=== PATIENT | male | born 1955 | race Caucasian/White ===

== ENCOUNTER 2016-11-01 06:37 | Emergency (ER) | payer OTHER ==
--- NOTE | 2016-11-01 07:21 | ED CLINICAL REPORT ---
Clinical Report - Physicians/[facility] [address] [place] [address] 11/01/2016 6:38 Patient: MELISSA MOORE Arrived- By private vehicle. Historian- patient. HISTORY OF PRESENT ILLNESS Chief Complaint: SKIN RASH. This started past 6 months and is still present and worsening. It was abrupt in onset and has been constant but is not gone now. It is described as painful and burning. It has been located on the face and neck. No recent medication, insect bite or food exposure. Was not recently exposed to poison mirta or poison oak. (patient reports picking at the wound. States that he looksat the scabs to come off with a "jewelers Loop. "States that he sees white material on the scabs. Reports he is follow-up with his creative writer however has not gotten better. Patient was initially he has had lidocaine cream, and about appointment, and pain medication which does not help with the lesions. The patient states that he has not been any recent drug use in the past month. Patient reports that he occasionally does marijuana. Patient reports no recent methamphetamine use.). Similar symptoms previously: Many times. Recent medical care: The patient was seen recently in a clinic. REVIEW OF SYSTEMS No fever, chills, headache, eye irritation or chest pain. All systems otherwise negative, except as recorded above. PAST HISTORY See nurses notes. Tetanus immunization status is up-to-date. SOCIAL HISTORY Smoker- current status unknown. History of occasional drug use: marijuana. No alcohol use. No recent travel. Is a local resident. ADDITIONAL NOTES The nursing notes have been reviewed. PHYSICAL EXAM Vital Signs: 11/01/2016 06:51 BP: 138/96. HR: 101. RR: 16. O2 saturation: 95%. Temp: 97.6 F. Hypertensive. Oxygen saturation normal. Appearance: Alert. Oriented X3. No acute distress. Neck: Neck supple. CVS: Normal heart rate and rhythm. Heart sounds normal. Respiratory: No respiratory distress. Breath sounds normal. Chest nontender. Abdomen: Nontender. No organomegaly. Skin: (area of excoriation to the left lower face as well as posterior neck. No active bleeding. No erythema. No abscess. Edges of the wound are well demarcated. They are not raised. No satellite lesions. No vesicles. Signs of chronic granulation tissue noted at the wound base.). PROGRESS AND PROCEDURES Course of Care: The patient is a pleasant and cooperative 61-year-old male presenting for evaluation of lesions to the left face in the posterior neck. Had long discussion with patient in regards to management of these wounds. Stressed the importance of not picking at the wounds. The patient states that she is seen by his creative writer and has not had significant improvement with any of the wounds. The patient that no matter what medical treatments are given, if he continues to pick at the wounds, there will be no healing. Patient describes fomites and tactile hallucinations. Had long discussion with the patient in regards to capabilities of wound management here in the emergency department. Do not feel that there is any signs of infection at this time. There is no erythema or purulent drainage from the wounds. Did not feel that the abnormalities fungal. Had discussion with patient in regards to the wounds and possibility of skin cancer however do not feel that this is likely. Likely wounds are from chronic excoriation. Patient was not happy with this explanation. Patient states that he does not want to be labeled as a substance abuse user. I discussed with patient in regards to this. Had explained to patient that these lesions are commonly seen with people who do methamphetamine however do not see that he does methamphetamine. I tried to offer her other medications for the discomfort and dictating healing however patient states that none of those have worked in the past. Only other option that I had at this point in time would be referral to a different creative writer. Patient is agreeable to this. Discussed with patient workup, diagnosis, home care, follow-up, and return precautions. All questions answered. Patient expressed understanding of these instructions and was agreeable to them. Disposition: Discharged. Condition: good. CLINICAL IMPRESSION Wound check (acute exacerbation on face and neck). INSTRUCTIONS Warnings: GENERAL WARNINGS: Return or contact your physician immediately if your condition worsens or changes unexpectedly, if not improving as expected, or if other problems arise. Specifically return if pain, vomiting, bleeding, breathing difficulty or fever. Your Current Medications: CONTINUE TAKING THE FOLLOWING MEDICATIONS: None*. OTC Medications: Acetaminophen (available over the counter): take according to label instructions. Follow-up: Return to the emergency department as needed. Follow up with your doctor in three days. Follow up with doctor Dermatology. Reason for referral: recheck today's concerns. Contact . Summary of care provided to patient via paper. Screening today revealed the patient's blood pressure to be in the normal range. The patient should follow up with a primary care provider for blood pressure management. Understanding of the discharge instructions verbalized by patient. (Electronically signed by Geoffrey Alvarado Dr. 11/01/2016 7:31)
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
--- NOTE | 2016-11-01 07:21 | ED CLINICAL REPORT ---
Clinical Report - Physicians/[facility] [address] [place] [address] 11/01/2016 6:38 Patient: MELISSA MOORE Arrived- By private vehicle. Historian- patient. HISTORY OF PRESENT ILLNESS Chief Complaint: SKIN RASH. This started past 6 months and is still present and worsening. It was abrupt in onset and has been constant but is not gone now. It is described as painful and burning. It has been located on the face and neck. No recent medication, insect bite or food exposure. Was not recently exposed to poison mirta or poison oak. (patient reports picking at the wound. States that he looksat the scabs to come off with a "jewelers Loop. "States that he sees white material on the scabs. Reports he is follow-up with his supervising chef however has not gotten better. Patient was initially he has had lidocaine cream, and about appointment, and pain medication which does not help with the lesions. The patient states that he has not been any recent drug use in the past month. Patient reports that he occasionally does marijuana. Patient reports no recent methamphetamine use.). Similar symptoms previously: Many times. Recent medical care: The patient was seen recently in a clinic. REVIEW OF SYSTEMS No fever, chills, headache, eye irritation or chest pain. All systems otherwise negative, except as recorded above. PAST HISTORY See nurses notes. Tetanus immunization status is up-to-date. SOCIAL HISTORY Smoker- current status unknown. History of occasional drug use: marijuana. No alcohol use. No recent travel. Is a local resident. ADDITIONAL NOTES The nursing notes have been reviewed. PHYSICAL EXAM Vital Signs: 11/01/2016 06:51 BP: 138/96. HR: 101. RR: 16. O2 saturation: 95%. Temp: 97.6 F. Hypertensive. Oxygen saturation normal. Appearance: Alert. Oriented X3. No acute distress. Neck: Neck supple. CVS: Normal heart rate and rhythm. Heart sounds normal. Respiratory: No respiratory distress. Breath sounds normal. Chest nontender. Abdomen: Nontender. No organomegaly. Skin: (area of excoriation to the left lower face as well as posterior neck. No active bleeding. No erythema. No abscess. Edges of the wound are well demarcated. They are not raised. No satellite lesions. No vesicles. Signs of chronic granulation tissue noted at the wound base.). PROGRESS AND PROCEDURES Course of Care: The patient is a pleasant and cooperative 61-year-old male presenting for evaluation of lesions to the left face in the posterior neck. Had long discussion with patient in regards to management of these wounds. Stressed the importance of not picking at the wounds. The patient states that she is seen by his supervising chef and has not had significant improvement with any of the wounds. The patient that no matter what medical treatments are given, if he continues to pick at the wounds, there will be no healing. Patient describes fomites and tactile hallucinations. Had long discussion with the patient in regards to capabilities of wound management here in the emergency department. Do not feel that there is any signs of infection at this time. There is no erythema or purulent drainage from the wounds. Did not feel that the abnormalities fungal. Had discussion with patient in regards to the wounds and possibility of skin cancer however do not feel that this is likely. Likely wounds are from chronic excoriation. Patient was not happy with this explanation. Patient states that he does not want to be labeled as a substance abuse user. I discussed with patient in regards to this. Had explained to patient that these lesions are commonly seen with people who do methamphetamine however do not see that he does methamphetamine. I tried to offer her other medications for the discomfort and dictating healing however patient states that none of those have worked in the past. Only other option that I had at this point in time would be referral to a different supervising chef. Patient is agreeable to this. Discussed with patient workup, diagnosis, home care, follow-up, and return precautions. All questions answered. Patient expressed understanding of these instructions and was agreeable to them. Disposition: Discharged. Condition: good. CLINICAL IMPRESSION Wound check (acute exacerbation on face and neck). INSTRUCTIONS Warnings: GENERAL WARNINGS: Return or contact your physician immediately if your condition worsens or changes unexpectedly, if not improving as expected, or if other problems arise. Specifically return if pain, vomiting, bleeding, breathing difficulty or fever. Your Current Medications: CONTINUE TAKING THE FOLLOWING MEDICATIONS: None*. OTC Medications: Acetaminophen (available over the counter): take according to label instructions. Follow-up: Return to the emergency department as needed. Follow up with your doctor in three days. Follow up with doctor Dermatology. Reason for referral: recheck today's concerns. Contact . Summary of care provided to patient via paper. Screening today revealed the patient's blood pressure to be in the normal range. The patient should follow up with a primary care provider for blood pressure management. Understanding of the discharge instructions verbalized by patient. (Electronically signed by Geoffrey Alvarado Dr. 11/01/2016 7:31)
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
--- NOTE | 2016-11-01 07:31 | ED MED RECONCILIATION SUMMARY ---
Patient: MELISSA MOORE Medication Reconciliation Report [facility] VisitID: [id number] [address] [place] [address] 61y, M Registration Date/Time: 11/01/2016 Weight: 86.1 kg Height/Length: 74 in. BMI: 24.4 ALLERGIES: None The patient's Home Medications are listed below: NONE. The source(s) of the original Home Medication information: Not obtained. The following Medications were given to the patient in the Emergency Department: None. The following Medications were prescribed to the patient: Acetaminophen (available over the counter): take according to label instructions. -- Geoffrey Alvarado Dr.
--- NOTE | 2016-11-01 07:31 | ED MAR SUMMARY ---
..... Medication Administration Record [facility] [address], [place] [id number] Patient: MELISSA MOORE Julia Visit ID: [id number] 61y, M Weight: 86.1 kg Height/Length: 74 in BMI: 24.4 ALLERGIES: None
--- NOTE | 2016-11-01 07:31 | ED DISCHARGE INSTRUCTIONS ---
Patient: MELISSA MOORE General Instructions [facility] VisitID: [id number] [place] [address] 61y, M Registration Date/Time: 11/01/2016 Wound check (acute exacerbation on face and neck). INSTRUCTIONS Warnings: GENERAL WARNINGS: Return or contact your physician immediately if your condition worsens or changes unexpectedly, if not improving as expected, or if other problems arise. Specifically return if pain, vomiting, bleeding, breathing difficulty or fever. Your Current Medications: CONTINUE TAKING THE FOLLOWING MEDICATIONS: None*. OTC Medications: Acetaminophen (available over the counter): take according to label instructions. Follow-up: Return to the emergency department as needed. Follow up with your doctor in three days. Follow up with doctor Dermatology. Reason for referral: recheck today's concerns. Contact . Summary of care provided to patient via paper. Screening today revealed the patient's blood pressure to be in the normal range. The patient should follow up with a primary care provider for blood pressure management. Understanding of the discharge instructions verbalized by patient. ADDITIONAL INFORMATION Abrasions Abrasions are skin scrapes. Their treatment depends on how large and deep the abrasion is. Home Care: If you were given a bandage, change it once a day. If your bandage sticks to the wound, soak it in warm water until it loosens. Wash the area with soap and water to remove all the cream/ointment. You may do this in a sink, under a tub faucet or shower. Rinse off the soap and pat dry with a clean towel. Reapply cream/ointment according to your doctor's instructions. This will prevent infection and help prevent the bandage from sticking. Cover the wound with a fresh non-stick bandage (Telfa). Repeat steps 1 to 4 daily, or as directed by your doctor. If the bandage becomes wet or dirty, change it as soon as possible. You may use acetaminophen (Tylenol) or ibuprofen (Motrin, Advil) to control pain, unless another pain medicine was prescribed. [ NOTE : If you have chronic liver or kidney disease or ever had a stomach ulcer or GI bleeding, talk with your doctor before using these medicines.] Do not use ibuprofen in children under six months of age. Follow Up with your physician or this facility as directed by our staff. Most skin wounds heal within ten days. However, an infection may occur despite proper treatment. Therefore, look for the early signs of infection listed below. Get Prompt Medical Attention if any of the following occur: Increasing pain in the wound Increasing redness or swelling Pus coming from the wound Fever of 100.4F (38C) or higher, or as directed by your healthcare provider You have been given the following additional information: Abrasion (Electronically signed by Geoffrey Alvarado Dr. 11/01/2016 7:31)
--- NOTE | 2016-11-01 07:31 | ED MAR SUMMARY ---
..... Medication Administration Record [facility] [address] [place], [place] [id number] Patient: MELISSA MOORE Julia Visit ID: [id number] 61y, M Weight: 86.1 kg Height/Length: 74 in BMI: 24.4 ALLERGIES: None
--- NOTE | 2016-11-01 07:31 | ED DISCHARGE INSTRUCTIONS ---
Patient: MELISSA MOORE General Instructions [facility] VisitID: [id number] [place] [address] 61y, M Registration Date/Time: 11/01/2016 Wound check (acute exacerbation on face and neck). INSTRUCTIONS Warnings: GENERAL WARNINGS: Return or contact your physician immediately if your condition worsens or changes unexpectedly, if not improving as expected, or if other problems arise. Specifically return if pain, vomiting, bleeding, breathing difficulty or fever. Your Current Medications: CONTINUE TAKING THE FOLLOWING MEDICATIONS: None*. OTC Medications: Acetaminophen (available over the counter): take according to label instructions. Follow-up: Return to the emergency department as needed. Follow up with your doctor in three days. Follow up with doctor Dermatology. Reason for referral: recheck today's concerns. Contact . Summary of care provided to patient via paper. Screening today revealed the patient's blood pressure to be in the normal range. The patient should follow up with a primary care provider for blood pressure management. Understanding of the discharge instructions verbalized by patient. ADDITIONAL INFORMATION Abrasions Abrasions are skin scrapes. Their treatment depends on how large and deep the abrasion is. Home Care: If you were given a bandage, change it once a day. If your bandage sticks to the wound, soak it in warm water until it loosens. Wash the area with soap and water to remove all the cream/ointment. You may do this in a sink, under a tub faucet or shower. Rinse off the soap and pat dry with a clean towel. Reapply cream/ointment according to your doctor's instructions. This will prevent infection and help prevent the bandage from sticking. Cover the wound with a fresh non-stick bandage (Telfa). Repeat steps 1 to 4 daily, or as directed by your doctor. If the bandage becomes wet or dirty, change it as soon as possible. You may use acetaminophen (Tylenol) or ibuprofen (Motrin, Advil) to control pain, unless another pain medicine was prescribed. [ NOTE : If you have chronic liver or kidney disease or ever had a stomach ulcer or GI bleeding, talk with your doctor before using these medicines.] Do not use ibuprofen in children under six months of age. Follow Up with your physician or this facility as directed by our staff. Most skin wounds heal within ten days. However, an infection may occur despite proper treatment. Therefore, look for the early signs of infection listed below. Get Prompt Medical Attention if any of the following occur: Increasing pain in the wound Increasing redness or swelling Pus coming from the wound Fever of 100.4F (38C) or higher, or as directed by your healthcare provider You have been given the following additional information: Abrasion (Electronically signed by Geoffrey Alvarado Dr. 11/01/2016 7:31)
--- NOTE | 2016-11-01 07:31 | ED MED RECONCILIATION SUMMARY ---
Patient: MELISSA MOORE Medication Reconciliation Report [facility] VisitID: [id number] [address] [place] [address] 61y, M Registration Date/Time: 11/01/2016 Weight: 86.1 kg Height/Length: 74 in. BMI: 24.4 ALLERGIES: None The patient's Home Medications are listed below: NONE. The source(s) of the original Home Medication information: Not obtained. The following Medications were given to the patient in the Emergency Department: None. The following Medications were prescribed to the patient: Acetaminophen (available over the counter): take according to label instructions. -- Geoffrey Alvarado Dr.
== END 2016-11-01 07:27 | disposition home or self-care (01) ==
LOC: ED SRH 06:37
DX: L98.9 Disorder of the skin and subcutaneous tissue, unspecified (principal); F17.200 Nicotine dependence, unspecified, uncomplicated